=== PATIENT | male | born 1995 | race Caucasian/White ===

== ENCOUNTER 2016-12-03 14:41 | Emergency (ER) | payer OTHER ==
[2016-12-03 15:09] VITALS: BMI 32.8
[2016-12-03] MEDS ORDERED: TDAP Vaccine 0.5 mL Syr IM ONE (15:26)
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
[2016-12-03 16:31] VITALS: BP 148/95; RESP 16; TEMP 97.7
[2016-12-03 16:37] VITALS: PULSE 107; O2SAT 98
== END 2016-12-03 16:36 ==
LOC: ED 14:41
DX: S80.211A Abrasion, right knee, initial encounter (principal); Y04.0XXA Assault by unarmed brawl or fight, initial encounter; Y92.410 Unspecified street and highway as the place of occurrence of the external cause; Z23 Encounter for immunization

== ENCOUNTER 2018-02-13 13:11 | Emergency (ER) | payer BC, OTHER ==
[2018-02-13 13:13] VITALS: BMI 25.3
--- NOTE | 2018-02-13 13:27 | ED PDOC ---
Arrival/HPI - General Chief Complaint: Lower Extremity Problem/Injury Time Seen by Provider: 02/13/18 13:18 Historian: Patient - History of Present Illness Narrative History of Present Illness (Text): 02/13/18 13:24 Patient is a 22 year old male who presents to emergency department by EMS for right knee pain which occurred prior to arrival. Patient reports that while playing basketball he jumped and upon landing on his feet noticed that his right knee was twisted. Patient subsequently lost consciousness which he attributes to the pain. He regained consciousness while EMS were on the scene. Patient denies head trauma, headache, dizziness, chest pain, or other complaints. Time/Duration: Prior to Arrival Symptom Onset: Sudden Symptom Course: Unchanged Context: Other (While playing basketball) Past Medical History - Provider Review Nursing Documentation Reviewed: Yes - Tetanus Immunization Tetanus Immunization: Never Received Tetanus Vaccine - Psychiatric Hx Substance Use: No - Anesthesia Hx Anesthesia: No - Suicidal Assessment Feels Threatened In Home Enviroment: No Family/Social History - Physician Review Nursing Documentation Reviewed: Yes Family/Social History: No Known Family HX Smoking Status: Light Smoker < 10 Cigarettes Daily Hx Alcohol Use: Yes Hx Substance Use: No Allergies/Home Meds Allergies/Adverse Reactions: Allergies No Known Allergies Allergy (Verified 02/13/18 13:41) Review of Systems - Physician Review All systems were reviewed & negative as marked: Yes - Review of Systems Cardiovascular: absent: Chest Pain Neurological: absent: Headache Physical Exam - Physical Exam Narrative Physical Exam (Text): 02/13/18 13:28 Constitutional: No acute distress. Head: Normocephalic. Atraumatic. Eyes: PERRL. ENT: Moist mucous membranes. Neck: Supple. Cardiovascular: Regular rate. Right dorsalis pedis pulse +2 Chest: No tenderness. Respiratory: Clear to auscultation bilaterally. GI: Soft. Nontender. Nondistended. Back: No CVA tenderness. Musculoskeletal: FROM of right hip, ankle, and digits. Right knee tenderness with no obvious edema. Skin: No rash. Neurologic: Alert, no focal deficit. Neurovascularly intact Vital Signs Reviewed: Yes Vital Signs Temp Pulse Resp BP Pulse Ox 02/13/18 14:19 98.6 F 87 18 147/88 100 Temperature: Afebrile Blood Pressure: Normal Pulse: Regular Respiratory Rate: Normal Appearance: Positive for: Well-Appearing Mental Status: Positive for: Alert and Oriented X 3 Medical Decision Making ED Course and Treatment: 02/13/18 13:31 Impression: Patient is a 22 year old male who presents to emergency department complaining of right knee pain secondary to knee injury. Differential Diagnosis included but are not limited to: fracture vs dislocation vs contusion Plan: --Toradol --Right knee X-ray --Reassess and disposition Prior Visits: Notes and results from previous visits were reviewed. Progress Notes: 02/13/18 14:18 Right Knee X-ray: Creator : Rachel Yousif IMPRESSION: No fracture or lytic lesion. Small effusion possible. 02/13/18 14:30 Reevaluation: On reevaluation active range of motion improved, but patient continues to have pain. Sensation and pulses remain intact. SHEREE wrap applied and brace applied in 20-30 degrees of flexion. Crutches provided and instructed on their use. Will require follow up with orthopedics for further evaluation and treatment. Patient is stable for discharge. - RAD Interpretation Radiology Orders: 02/13/18 13:22 KNEE W PATELLA RIGHT 3 VIEW [RAD] Stat Miller Kiln Dried Salt: Radiologist - Medication Orders Current Medication Orders: Discontinued Medications Ketorolac Tromethamine (Toradol) 60 mg IM STAT STA Stop: 02/13/18 13:24 Last Admin: 02/13/18 13:32 Dose: 60 mg MAR Pain Assessment Document 02/13/18 13:32 HI (Rec: 02/13/18 13:32 HI [id number]) Pain Reassessment Is this a pain reassessment? No Sleep Is patient sleeping during reassessment? No Presence of Pain Presence of Pain Yes Pain Scale Used Pain Scale Used Numeric Location Left, Right or Bilateral Right Pain Location Body Site Knee IM Administration Charges Document 02/13/18 13:32 HI (Rec: 02/13/18 13:32 HI [id number]) Injection Site MAR Injection Site Left Gluteus Avldez Charges for Administration # of IM Administrations 1 - Scribe Statement The provider has reviewed the documentation as recorded by the Scribe Luis Wheeler Provider Scribe Attestation: All medical record entries made by the Scribe were at my direction and personally dictated by me. I have reviewed the chart and agree that the record accurately reflects my personal performance of the history, physical exam, medical decision making, and the department course for this patient. I have also personally directed, reviewed, and agree with the discharge instructions and disposition. Disposition/Present on Arrival - Present on Arrival Any Indicators Present on Arrival: No History of DVT/PE: No History of Uncontrolled Diabetes: No Urinary Catheter: No History Surgical Site Infection Following: None - Disposition Have Diagnosis and Disposition been Completed?: Yes Diagnosis: Knee injury Disposition: HOME/ ROUTINE Disposition Time: 14:41 Patient Plan: Discharge Patient Problems: Current Active Problems Problem Status Onset Knee injury Acute Condition: STABLE Discharge Instructions (ExitCare): Knee Pain Prescriptions: Famotidine [Pepcid] 1 tab PO BID #14 tab Ibuprofen [Motrin] 600 mg PO Q6 #25 tab Referrals: Aurelio Chaney MD [Staff Provider] - Follow up with primary Forms: [employer] (Malaysian)
--- NOTE | 2018-02-13 14:06 | RAD ---
PROCEDURE: Right Knee Radiographs. HISTORY: knee pain COMPARISON: None. FINDINGS: BONES: Anterior tibial tuberosity cortical hyperostoses -believe to be a developmental variant. No fracture. JOINTS: Normal. No osteoarthritis. JOINT EFFUSION: Small effusion possible OTHER FINDINGS: None. IMPRESSION: No fracture or lytic lesion. Small effusion possible
[2018-02-13 14:20] VITALS: RESP 18; TEMP 98.6; O2SAT 100
[2018-02-14 00:06] VITALS: BP 135/72; PULSE 80
== END 2018-02-13 15:00 | disposition home or self-care (01) ==
LOC: ED 13:11
DX: S89.91XA Unspecified injury of right lower leg, initial encounter (principal); X50.1XXA Overexertion from prolonged static or awkward postures, initial encounter; Y93.67 Activity, basketball; F17.210 Nicotine dependence, cigarettes, uncomplicated
CPT/HCPCS: 73562; 96372; 99283; J1885

== ENCOUNTER 2018-09-10 23:25 | Emergency (ER) | payer BC, OTHER ==
[2018-09-10 23:34] VITALS: BMI 29.9
[2018-09-10 23:38] VITALS: RESP 18; O2SAT 98
[2018-09-11] MEDS ORDERED: Oxycodone/Acetaminophen 5/325 mg Tab PO STA (00:29)
--- NOTE | 2018-09-11 02:11 | ED PDOC ---
Arrival/HPI - General Chief Complaint: Lower Extremity Problem/Injury Time Seen by Provider: 09/10/18 23:35 Historian: Patient - History of Present Illness Narrative History of Present Illness (Text): 09/11/18 02:10 23yr old male presents today with right knee pain. pt states he had surgery last week for ACL and PCL repair. pt states he ran out of pain medications and is still having pain. pt denies n/v/d/c. no recent trauma or injury. pt states the hinged brace has slid down his knee and isnt in the correct position. pt denies numbness weakness or tingling in the extremity. no other complaints. Past Medical History - Provider Review Nursing Documentation Reviewed: Yes - Travel History Have you recently traveled outside [place] w/in the past 3 mons?: No - Infectious Disease Hx of Infectious Diseases: None - Psychiatric Hx Substance Use: No - Anesthesia Hx Anesthesia: No - Suicidal Assessment Feels Threatened In Home Enviroment: No Family/Social History - Physician Review Nursing Documentation Reviewed: Yes Family/Social History: Unknown Family HX Smoking Status: Light Smoker < 10 Cigarettes Daily Hx Alcohol Use: Yes Hx Substance Use: No Substance used: marijuana Allergies/Home Meds Allergies/Adverse Reactions: Allergies No Known Allergies Allergy (Verified 02/13/18 13:41) Review of Systems - Review of Systems Constitutional: absent: Fatigue, Fevers Respiratory: absent: SOB, Cough Cardiovascular: absent: Chest Pain, Palpitations Gastrointestinal: absent: Abdominal Pain, Nausea, Vomiting Musculoskeletal: Arthralgias (right knee pain) Skin: absent: Pruritis Neurological: absent: Headache, Dizziness Psychiatric: absent: Anxiety, Depression Physical Exam Vital Signs Reviewed: Yes Vital Signs Temp Pulse Resp BP Pulse Ox 09/10/18 23:34 98 F 108 H 18 156/96 H 98 Temperature: Afebrile Blood Pressure: Hypertensive Pulse: Tachycardic Respiratory Rate: Normal Appearance: Positive for: Well-Appearing, Non-Toxic, Comfortable Pain Distress: None Mental Status: Positive for: Alert and Oriented X 3 - Systems Exam Head: Present: Atraumatic Mouth: Present: Moist Mucous Membranes Neck: Present: Normal Range of Motion Respiratory/Chest: Present: Clear to Auscultation, Good Air Exchange. No: Respiratory Distress, Accessory Muscle Use Cardiovascular: Present: Regular Rate and Rhythm, Normal S1, S2. No: Murmurs Lower Extremity: Present: Tenderness (right knee; + edema noted over anterior aspect of knee. multiple surgical incisions noted without surrounding erythema. no calf tenderness. sensation and distal pulses intact. ), Swelling, Neurovascularly Intact. No: Normal ROM, Erythema, Deformity Neurological: Present: GCS=15, Speech Normal Skin: Present: Warm, Dry, Normal Color. No: Rashes Psychiatric: Present: Alert, Oriented x 3 Medical Decision Making ED Course and Treatment: 09/11/18 02:55 23-year-old male presenting with right knee pain and swelling status post surgery on September 04. Upon examination the patient's hinged knee immobilizer was not in the correct location and found to be with the hinge around the calf as opposed to being around the knee joint. The Joel wrap and the cold therapy polar care kit was over the shea and not over the knee. percocet given for pain. zofran added. the knee brace, joel wrap and cold therapy polar care kit were adjusted to correct position. pt with instantaneous improvement in pain/discomfort. pt was advised to use crutches, rest, ice, elevation and f/u with surgeon tomorrow. Advised immediate return if symptoms worsen persist or if new concerning symptoms develop Patient verbalizes understanding of discharge instructions and need for immediate followup. Impression: Knee pain Follow up with the orthopedic surgeon TOMORROW. use crutches for ambulation. rest, ice, elevation return if symptoms worsen,persist or if new symptoms develop. Reassessment Condition: Re-examined, Improved - Medication Orders Current Medication Orders: Discontinued Medications Ondansetron HCl (Zofran Odt) 4 mg PO STAT STA Stop: 09/11/18 00:30 Last Admin: 09/11/18 01:24 Dose: 4 mg Oxycodone/Acetaminophen (Percocet 5/325 Mg Tab) 1 tab PO STAT STA Stop: 09/11/18 00:30 Last Admin: 09/11/18 01:24 Dose: 1 tab [facility] Pain Assessment Document 09/11/18 01:24 RE (Rec: 09/11/18 01:29 RE [facility] [id number]) Pain Reassessment Is this a pain reassessment? No Sleep Is patient sleeping during reassessment? No Presence of Pain Presence of Pain No Pain Scale Used Protocol: PSCALES Pain Scale Used Numeric Location Left, Right or Bilateral Right Pain Location Body Site Knee Disposition/Present on Arrival - Present on Arrival Any Indicators Present on Arrival: No History of DVT/PE: No History of Uncontrolled Diabetes: No Urinary Catheter: No History of Decub. Ulcer: No History Surgical Site Infection Following: None - Disposition Have Diagnosis and Disposition been Completed?: Yes Diagnosis: Knee pain Disposition: HOME/ ROUTINE Disposition Time: 01:29 Patient Plan: Discharge Patient Problems: Current Active Problems Problem Status Onset Knee pain Acute Condition: GOOD Discharge Instructions (ExitCare): Knee Pain (DC) Additional Instructions: Follow up with the orthopedist surgeon TOMORROW. use crutches for ambulation. rest, ice, elevation return if symptoms worsen,persist or if new symptoms develop. Referrals: [facility] [place] [Outside] - Follow up with primary [facility] [Outside] - Follow up with primary Josiah Ratliff DO [Staff Provider] - Follow up with primary Verenice Parker MD [Medical Doctor] - Follow up with primary
[2018-09-11 04:42] VITALS: BP 122/78; PULSE 98; TEMP 98.2
== END 2018-09-11 03:10 | disposition home or self-care (01) ==
LOC: ED 23:25
DX: M25.561 Pain in right knee (principal)